=== PATIENT | female | born 1995 | race American Indian/Alaskan Native ===

== ENCOUNTER 2021-07-20 16:34 | Outpatient (CLI) | payer SELFPAY ==
[2021-07-20 18:13] VITALS: BP 112/68
[2021-07-20] MEDS ORDERED: BETAMET ACET/BETAMET NA PH 6 MG/ML INJ 5 ML MDV IM SCH (20:00)
[2021-07-20 20:02] LABS: Bilirubin,Urine NEG (Negative); Blood,Urine NEG (Negative); Color,Urine Yellow (Yellow); Mucus,Urine 2+ /HPF
[2021-07-20] MEDS ORDERED: LACTATED RINGERS 1,000 ML IV ONE (20:16)
== END 2021-07-20 19:45 | disposition home or self-care (01) ==
LOC: TRG 16:34 → APU 16:36 → TRG 19:45
PROVIDERS: ATTEND Obstetrics & Gynecology
DX: Z34.92 Encounter for supervision of normal pregnancy, unspecified, second trimester (principal); Z3A.26 26 weeks gestation of pregnancy
CPT/HCPCS: 59025; 81001; 96372; J0702

== ENCOUNTER 2021-07-21 19:07 | Outpatient (CLI) | payer OTHER ==
[2021-07-21] MEDS ORDERED: BETAMET ACET/BETAMET NA PH 6 MG/ML INJ 5 ML MDV IM ONE (21:00)
[2021-07-22 02:02] VITALS: BP 116/64
== END 2021-07-21 20:12 | disposition home or self-care (01) ==
LOC: TRG 19:07 → APU 19:09 → TRG 20:12
PROVIDERS: ATTEND Obstetrics & Gynecology
DX: Z34.92 Encounter for supervision of normal pregnancy, unspecified, second trimester (principal); Z3A.26 26 weeks gestation of pregnancy
CPT/HCPCS: 59025; 96372; J0702